=== PATIENT | male | born 1990 | race African-American/Black ===

== ENCOUNTER 2017-04-12 12:49 | Emergency (ER) | payer OTHER ==
[~2017-04-12] VITALS: Ht 185.4 cm; Wt 78.0 kg
[2017-04-12] MEDS ORDERED: BACTRIM,SEPT1 TABLET PO (13:10)
[2017-04-12] MEDS ORDERED: KEFLEX500 MG PO (13:10)
[2017-04-12 13:27] VITALS: BP 107/64
== END 2017-04-12 13:28 | disposition home or self-care (01) ==
LOC: EME 12:49
DX: L02.415 Cutaneous abscess of right lower limb (principal); K50.90 Crohn's disease, unspecified, without complications; Z90.49 Acquired absence of other specified parts of digestive tract; F17.200 Nicotine dependence, unspecified, uncomplicated
CPT/HCPCS: 87070; 87075; 87076; 87185; 87205; 99281; 99282